=== PATIENT | female | born 1960 | race Caucasian/White ===

== ENCOUNTER 2016-11-03 13:26 | Emergency (ER) | payer MEDICARE, BC ==
[~2016-11-03] VITALS: Ht 162.6 cm; Wt 61.5 kg
[~2016-11-03 13:26] MED LIST: BACL20TA PO; BUPR1PAT TD; OXYC-302 PO
[2016-11-03] MEDS ORDERED: HYDROmorphone 1 MG/ML, 1ML ONE (14:17)
[2016-11-03] MEDS ORDERED: ONDANSETRON 2MG/ML, 2ML ONE (14:17)
[2016-11-03] MEDS ORDERED: SODIUM CHLORIDE 0.9% 1,000ML IVBOLUS ONE (14:30)
[2016-11-03] MEDS ORDERED: ONDANSETRON 2MG/ML, 2ML IVPush ONE (14:30)
[2016-11-03] MEDS ORDERED: SODIUM CHLORIDE FLUSH 10ML SYR IVF ONE (14:30)
[2016-11-03] MEDS ORDERED: HYDROmorphone 1 MG/ML, 1ML IVPush PRN (14:30)
[2016-11-03 14:39] LABS: ASPARTATE AMINO TRANSFERASE 25 U/L (15-37); BLOOD UREA NITROGEN 19 mg/dL (7-18)
[2016-11-03] MEDS ORDERED: HYDROmorphone 2 MG/ML, 1ML ONE (16:08)
[2016-11-03] MEDS ORDERED: PROMETHAZINE 25 MG/ML, 1ML ONE (16:10)
[2016-11-03] MEDS ORDERED: PROMETHAZINE 25 MG/ML, 1ML IM ONE (16:30)
[2016-11-03] MEDS ORDERED: HYDROmorphone 2 MG/ML, 1ML IM ONE (16:30)
[2016-11-03 19:04] VITALS: BP 100/64
== END 2016-11-03 19:36 | disposition home or self-care (01) ==
LOC: ED 19:30
DX: R19.7 Diarrhea, unspecified (principal); R11.2 Nausea with vomiting, unspecified
CPT/HCPCS: 36415; 74176; 80053; 81001; 83690; 85025; 85610; 85730; 87077; 87086; 87186; 96372; 99285; J1170; J2550

== ENCOUNTER 2017-11-29 12:11 | Emergency (ER) | payer MEDICARE, BC ==
[~2017-11-29] VITALS: Ht 162.6 cm; Wt 59.0 kg
[~2017-11-29 12:11] MED LIST changes: -BUPR1PAT TD; +BUPR1PAT7 TD
[2017-11-29] MEDS ORDERED: SODIUM CHLORIDE FLUSH 10ML SYR IVF ONE (13:30)
[2017-11-29] MEDS ORDERED: SODIUM CHLORIDE 0.9% 1,000ML IVBOLUS ONE (13:30)
[2017-11-29 13:42] LABS: BASOPHILS # (AUTO) 0.02 x10^3/uL (0-0.1); BASOPHILS % (AUTO) 0 % (0-1); EOSINOPHILS # (AUTO) 0.11 x10^3/uL (0-0.4); EOSINOPHILS % (AUTO) 2 % (1-7); LYMPHOCYTES # (AUTO) 2.08 x10^3/uL (1-3.4); LYMPHOCYTES % (AUTO) 32 % (22-44); MD NO; MEAN CORPUSCULAR HEMOGLOBIN 31.4 pg (27.0-34.8); MEAN CORPUSCULAR HGB CONC 34.5 g/dL (32.4-35.8); MEAN CORPUSCULAR VOLUME 91.1 fL (80-100); MEAN PLATELET VOLUME 7.7 fL (7.4-10.4); MONOCYTES # (AUTO) 0.38 x10^3/uL (0.2-0.8); MONOCYTES % (AUTO) 6 % (2-9); NEUTROPHILS # (AUTO) 3.99 x10^3/uL (1.8-6.8); NEUTROPHILS % (AUTO) 61 % (42-75); PLATELET COUNT 232 x10^3/uL (130-400); RED BLOOD COUNT 4.02 x10^6/uL (3.82-5.3); RED CELL DISTRIBUTION WIDTH 13.2 % (9.6-15.2)
[2017-11-29 13:52] LABS: ALBUMIN 3.5 g/dL (3.4-5.0); ANION GAP 7 mmol/L (5-15); CALCIUM 8.8 mg/dL (8.5-10.1); CHLORIDE 106 mmol/L (98-107)
[2017-11-29 13:55] LABS: ALANINE AMINOTRANSFERASE 18 U/L (12-78); ALKALINE PHOSPHATASE 87 U/L (45-117); BILIRUBIN,TOTAL 0.4 mg/dL (0.2-1.0); CREATININE 0.39 mg/dL (0.55-1.02); TOTAL PROTEIN 6.8 g/dL (6.4-8.2)
[2017-11-29] MEDS ORDERED: HYDR-879 PO (14:20)
[2017-11-29] MEDS ORDERED: CYCL5TAB PO (14:21)
[2017-11-29] MEDS ORDERED: DOCU-145 PO (14:22)
[2017-11-29 14:33] VITALS: BP 99/65
== END 2017-11-29 14:35 | disposition home or self-care (01) ==
LOC: ED 14:29
DX: K59.00 Constipation, unspecified (principal)
CPT/HCPCS: 36415; 74176; 80053; 83690; 85025; 99285

== ENCOUNTER 2018-01-19 23:15 | Emergency (ER) | payer MEDICARE, BC ==
[~2018-01-19] VITALS: Ht 162.6 cm; Wt 51.0 kg
[~2018-01-19 23:15] MED LIST changes: +CYCL5TAB PO; +DOCU-145 PO; +HYDR-879 PO
[2018-01-19 23:17] VITALS: BP 94/47
[2018-01-20] MEDS ORDERED: HYDROcodone/APAP 5/325 TABLET ONE (00:44)
[2018-01-20] MEDS ORDERED: HYDROcodone/APAP 5/325 TABLET PO ONE (01:00)
[2018-01-20 01:15] LABS: BASOPHILS # (AUTO) 0.03 x10^3/uL (0-0.1); BASOPHILS % (AUTO) 0 % (0-1); EOSINOPHILS # (AUTO) 0.19 x10^3/uL (0-0.4); EOSINOPHILS % (AUTO) 2 % (1-7); LYMPHOCYTES % (AUTO) 25 % (22-44); MD NO; MEAN CORPUSCULAR HEMOGLOBIN 31.5 pg (27.0-34.8); MEAN CORPUSCULAR HGB CONC 34.4 g/dL (32.4-35.8); MEAN CORPUSCULAR VOLUME 91.6 fL (80-100); MEAN PLATELET VOLUME 7.6 fL (7.4-10.4); MONOCYTES % (AUTO) 7 % (2-9); NEUTROPHILS # (AUTO) 5.35 x10^3/uL (1.8-6.8); NEUTROPHILS % (AUTO) 65 % (42-75); PLATELET COUNT 225 x10^3/uL (130-400); RED BLOOD COUNT 3.94 x10^6/uL (3.82-5.3); RED CELL DISTRIBUTION WIDTH 13.6 % (9.6-15.2)
[2018-01-20 01:22] LABS: ALANINE AMINOTRANSFERASE 15 U/L (12-78); ALBUMIN 3.6 g/dL (3.4-5.0); ANION GAP 5 mmol/L (5-15); CALCIUM 8.3 mg/dL (8.5-10.1); CHLORIDE 112 mmol/L (98-107)
[2018-01-20 01:33] LABS: ALKALINE PHOSPHATASE 113 U/L (45-117); BILIRUBIN,TOTAL 0.2 mg/dL (0.2-1.0); CREATININE 0.56 mg/dL (0.55-1.02); THYROID STIMULATING HORMONE 0.766 mIU/L (0.358-3.740); TOTAL PROTEIN 6.8 g/dL (6.4-8.2)
[2018-01-20] MEDS ORDERED: ZIPRASIDONE 20 MG INJ IM ONE (02:00)
== END 2018-01-20 02:58 | disposition home or self-care (01) ==
LOC: ED 23:59
DX: F11.23 Opioid dependence with withdrawal (principal); Z87.891 Personal history of nicotine dependence
CPT/HCPCS: 36415; 80053; 84443; 85025; 96372; 99284; J3486

== ENCOUNTER 2019-10-27 12:20 | Emergency (ER) | payer MEDICARE, BC ==
[~2019-10-27] VITALS: Ht 162.6 cm; Wt 54.5 kg
[~2019-10-27 12:20] MED LIST changes: +ACID1TAB7 PO; +CARV6.2512 PO; +HYDR-3622 PO; -HYDR-879 PO; +SENN-193 PO
[2019-10-27] MEDS ORDERED: DIAZEPAM 5 MG/ML, 2ML ONE (13:42)
[2019-10-27] MEDS ORDERED: DIAZEPAM 5 MG/ML, 2ML IM ONE (14:00)
[2019-10-27] MEDS ORDERED: DIAZEPAM 5 MG/ML, 10ML VIAL IVPush ONE (14:00)
--- NOTE | 2019-10-27 14:21 | NUR ---
PT REFUSED PIV PLACEMENT, [facility] ORDER CHANGED TO IM.
[2019-10-27 14:34] LABS: BASOPHILS # (AUTO) 0.02 x10^3/uL (0-0.1); BASOPHILS % (AUTO) 0 % (0-1); EOSINOPHILS # (AUTO) 0.06 x10^3/uL (0-0.4); EOSINOPHILS % (AUTO) 1 % (1-7); LYMPHOCYTES # (AUTO) 1.05 x10^3/uL (1-3.4); LYMPHOCYTES % (AUTO) 18 % (22-44); MD NO; MEAN CORPUSCULAR HEMOGLOBIN 31.3 pg (27.0-34.8); MEAN CORPUSCULAR HGB CONC 32.9 g/dL (32.4-35.8); MEAN PLATELET VOLUME 7.8 fL (7.4-10.4); MONOCYTES # (AUTO) 0.43 x10^3/uL (0.2-0.8); MONOCYTES % (AUTO) 7 % (2-9); NEUTROPHILS # (AUTO) 4.32 x10^3/uL (1.8-6.8); NEUTROPHILS % (AUTO) 74 % (42-75); PLATELET COUNT 175 x10^3/uL (130-400); RED BLOOD COUNT 3.43 x10^6/uL (3.82-5.3)
[2019-10-27 14:41] LABS: ALBUMIN 3.4 g/dL (3.4-5.0); ANION GAP 4 mmol/L (5-15); CALCIUM 8.2 mg/dL (8.5-10.1); CHLORIDE 110 mmol/L (98-107)
[2019-10-27 14:42] LABS: CREATININE 0.51 mg/dL (0.55-1.02)
--- NOTE | 2019-10-27 14:53 | NUR ---
ALL RESULTS ARE BACK AT THIS TIME. CHART UP FOR RECHECK.
[2019-10-27] MEDS ORDERED: ONDANSETRON ODT 4 MG ONE (15:08)
[2019-10-27] MEDS ORDERED: KETOROLAC 60 MG/2 ML ONE (15:09)
[2019-10-27] MEDS ORDERED: HYDROmorphone 1 MG/ML, 1ML INJ ONE (15:09)
--- NOTE | 2019-10-27 15:15 | NUR ---
MEDS ADMIN PER JUL.
[2019-10-27 15:30] VITALS: BP 127/99
[2019-10-27] MEDS ORDERED: HYDROmorphone 1 MG/ML, 1ML INJ IM ONE (15:30)
[2019-10-27] MEDS ORDERED: ONDANSETRON ODT 4 MG PO ONE (15:30)
[2019-10-27] MEDS ORDERED: KETOROLAC 30 MG/1 ML IM ONE (15:30)
--- NOTE | 2019-10-27 15:46 | NUR ---
PT STATES SHE FEELS A LITTLE BETTER AFTER MEDS.
--- NOTE | 2019-10-27 16:31 | NUR ---
MD AT BEDSIDE TO UPDATE PT ON POC.
== END 2019-10-27 16:45 | disposition home or self-care (01) ==
LOC: ED 13:54
DX: M47.896 Other spondylosis, lumbar region (principal); Z87.891 Personal history of nicotine dependence
CPT/HCPCS: 36415; 80048; 82040; 85025; 96372; 99285; J1170; J1885; J3360; Q0162

== ENCOUNTER 2020-01-12 03:37 | Emergency (ER) | payer MEDICARE, BC ==
[~2020-01-12] VITALS: Ht 162.6 cm; Wt 52.0 kg
[2020-01-12 03:41] VITALS: BP 96/58
[2020-01-12] MEDS ORDERED: DIAZEPAM 5 MG TABLET PO ONE (04:00)
[2020-01-12] MEDS ORDERED: KETOROLAC 60 MG/2 ML IM ONE (04:00)
[2020-01-12] MEDS ORDERED: KETOROLAC 60 MG/2 ML ONE (04:04)
[2020-01-12] MEDS ORDERED: DIAZEPAM 5 MG TABLET ONE (04:04)
[2020-01-12 04:14] LABS: BASOPHILS # (AUTO) 0.02 x10^3/uL (0-0.1); BASOPHILS % (AUTO) 0 % (0-1); EOSINOPHILS # (AUTO) 0.17 x10^3/uL (0-0.4); EOSINOPHILS % (AUTO) 3 % (1-7); LYMPHOCYTES # (AUTO) 1.73 x10^3/uL (1-3.4); LYMPHOCYTES % (AUTO) 27 % (22-44); MD NO; MEAN CORPUSCULAR HEMOGLOBIN 30.9 pg (27.0-34.8); MEAN CORPUSCULAR HGB CONC 33.3 g/dL (32.4-35.8); MEAN PLATELET VOLUME 7.5 fL (7.4-10.4); MONOCYTES # (AUTO) 0.47 x10^3/uL (0.2-0.8); MONOCYTES % (AUTO) 7 % (2-9); NEUTROPHILS # (AUTO) 3.93 x10^3/uL (1.8-6.8); NEUTROPHILS % (AUTO) 62 % (42-75); PLATELET COUNT 197 x10^3/uL (130-400); RED BLOOD COUNT 3.46 x10^6/uL (3.82-5.3); RED CELL DISTRIBUTION WIDTH 12.9 % (9.6-15.2)
[2020-01-12 04:27] LABS: ALANINE AMINOTRANSFERASE 20 U/L (12-78); ALBUMIN 3.3 g/dL (3.4-5.0); ANION GAP 5 mmol/L (5-15); CALCIUM 8.3 mg/dL (8.5-10.1); CHLORIDE 109 mmol/L (98-107); CREATININE 0.48 mg/dL (0.55-1.02)
[2020-01-12 04:29] LABS: ALKALINE PHOSPHATASE 76 U/L (45-117); BILIRUBIN,TOTAL 0.3 mg/dL (0.2-1.0); TOTAL PROTEIN 6.3 g/dL (6.4-8.2)
--- NOTE | 2020-01-12 06:10 | NUR ---
Provider at bedside
[2020-01-12] MEDS ORDERED: HYDROmorphone 1 MG/ML, 1ML INJ ONE ×2 (06:24→06:27)
[2020-01-12] MEDS ORDERED: HYDROmorphone 1 MG/ML, 1ML INJ IM ONE (06:30)
[2020-01-12 07:13] LABS: MICROSCOPIC NOT IND
== END 2020-01-12 08:08 | disposition home or self-care (01) ==
LOC: ED 04:41
DX: M54.5 Low back pain (principal); Z87.891 Personal history of nicotine dependence
CPT/HCPCS: 36415; 80053; 81003; 83690; 85025; 96372; 99284; J1170; J1885

== ENCOUNTER 2020-01-24 15:39 | Emergency (ER) | payer MEDICARE, BC ==
[~2020-01-24] VITALS: Ht 162.6 cm; Wt 55.0 kg
[2020-01-24] MEDS ORDERED: KETOROLAC 30 MG/1 ML ONE (16:24)
[2020-01-24] MEDS ORDERED: DIAZEPAM 5 MG/ML, 2ML ONE (16:24)
[2020-01-24] MEDS ORDERED: DIAZEPAM 5 MG/ML, 2ML IVPush ONE (16:30)
[2020-01-24] MEDS ORDERED: SODIUM CHLORIDE FLUSH 10ML SYR IVF ONE (16:30)
[2020-01-24] MEDS ORDERED: KETOROLAC 30 MG/1 ML IVPush ONE (16:30)
--- NOTE | 2020-01-24 16:38 | NUR ---
NECK AND BACK PAIN. PT NOTED TO HAVE MUSCLE SPASM LIKE MOVEMENTS. MEDICATED FOR SAME
[2020-01-24 17:21] VITALS: BP 160/87
--- NOTE | 2020-01-24 17:39 | NUR ---
AFTER MEDICATED, PT'S STATES PT SLEEPS AND NO MUSCLE JERKING WHILE SLEEPING. THEN PT EXPERIENCES A JERK THAT WAKES HER UP. PT ADDITIONALLY C/O NAUSEA. TO BE MEDICATED FOR SAME. TO CT
[2020-01-24] MEDS ORDERED: ONDANSETRON ODT 4 MG ONE (17:47)
[2020-01-24] MEDS ORDERED: ONDANSETRON ODT 4 MG PO ONE (18:00)
--- NOTE | 2020-01-24 18:20 | NUR ---
PT TEARY AND STATES SHE CONTINUES TO HAVE NECK PAIN. AWAITING RE-EVAL
[2020-01-24] MEDS ORDERED: OXYcodone/APAP 10/325MG TABLET PO ONE (18:30)
--- NOTE | 2020-01-24 18:30 | NUR ---
PA RE-EVAL WITH PAIN MEDICATION ORDERED.
--- NOTE | 2020-01-24 19:00 | NUR ---
REPORT TO DIANE ORTEGA.
--- NOTE | 2020-01-24 19:01 | NUR ---
Report received from JORDAN Wong. This RN assuming care. Patient medicated per jul. Discharge instructions given. All questions and concerns addressed. Assisted into personal electric wheelchair. Belongings with patient.
[2020-01-24] MEDS ORDERED: OXYcodone/APAP 10/325MG TABLET ONE (19:06)
== END 2020-01-24 19:29 | disposition home or self-care (01) ==
LOC: ED 16:43
DX: S16.1XXA Strain of muscle, fascia and tendon at neck level, initial encounter (principal); M47.814 Spondylosis without myelopathy or radiculopathy, thoracic region; M47.812 Spondylosis without myelopathy or radiculopathy, cervical region; X58.XXXA Exposure to other specified factors, initial encounter; Y93.89 Activity, other specified; Y92.009 Unspecified place in unspecified non-institutional (private) residence as the place of occurrence of the external cause; Y99.8 Other external cause status
CPT/HCPCS: 72125; 96374; 96375; 99284; J1885; J3360; Q0162

== ENCOUNTER 2020-02-25 10:40 | Observation (INO) | payer MEDICARE, BC ==
[~2020-02-25] VITALS: Ht 162.6 cm; Wt 56.0 kg
--- NOTE | 2020-02-25 11:08 | NUR ---
PT C/O WORSENING LOW BACK PAIN X3 DAYS, PT IS PARAPLEGIC AND REPORTS THIS PAIN IS NOT BASELINE. PLACED ON VITALS MONITORS, PT TRANSFERRED TO [facility], FALL PRECAUTIONS IN PLACE, CALL LIGHT WITHIN REACH.
[2020-02-25] MEDS ORDERED: ONDANSETRON 2MG/ML, 2ML ONE (11:19)
[2020-02-25] MEDS ORDERED: MORPHINE SULFATE 4 MG/ML, 1ML ONE ×2 (11:20→13:23)
--- NOTE | 2020-02-25 11:21 | NUR ---
PT TRANSPORTED TO CT.
[2020-02-25] MEDS ORDERED: SODIUM CHLORIDE 0.9%, 500ML IVBOLUS ONE (11:30)
[2020-02-25] MEDS ORDERED: ONDANSETRON 2MG/ML, 2ML IVPush ONE (11:30)
[2020-02-25] MEDS: MORPHINE SULFATE 4 MG/ML, 1ML IVPush PRN ×2 (12:00→13:24)
[2020-02-25 12:08] LABS: BASOPHILS % (AUTO) 1 % (0-1); EOSINOPHILS % (AUTO) 1 % (1-7); LYMPHOCYTES % (AUTO) 22 % (22-44); MEAN CORPUSCULAR HEMOGLOBIN 30.5 pg (27.0-34.8); MEAN CORPUSCULAR HGB CONC 32.8 g/dL (32.4-35.8); MEAN PLATELET VOLUME 8.3 fL (7.4-10.4); MONOCYTES % (AUTO) 6 % (2-9); NEUTROPHILS % (AUTO) 70 % (42-75); PLATELET COUNT 178 x10^3/uL (130-400); RED BLOOD COUNT 3.74 x10^6/uL (3.82-5.3); RED CELL DISTRIBUTION WIDTH 13.6 % (9.6-15.2)
[2020-02-25 12:09] LABS: MD NO
[2020-02-25 12:17] LABS: ALANINE AMINOTRANSFERASE 26 U/L (12-78); ALBUMIN 3.5 g/dL (3.4-5.0); ANION GAP 5 mmol/L (5-15); CALCIUM 8.6 mg/dL (8.5-10.1); CHLORIDE 112 mmol/L (98-107); CREATININE 0.54 mg/dL (0.55-1.02)
[2020-02-25 12:19] LABS: ALKALINE PHOSPHATASE 80 U/L (45-117); BILIRUBIN,TOTAL 0.6 mg/dL (0.2-1.0); TOTAL PROTEIN 6.6 g/dL (6.4-8.2)
--- NOTE | 2020-02-25 12:42 | NUR ---
URINE SAMPLE COLLECTED BY STRAIGHT CATH WITHOUT DIFFICULTY.
[2020-02-25] MEDS ORDERED: MELO15TA24 PO (12:46)
[2020-02-25 12:52] LABS: MICROSCOPIC AUTO
[2020-02-25] MEDS ORDERED: CEFTRIAXONE PMX 1GM/50ML 50 ML ONE (13:27)
[2020-02-25] MEDS ORDERED: CEFTRIAXONE PMX 1GM/50ML 50 ML IV ONE (13:30)
[2020-02-25] MEDS ORDERED: PANTOPRAZOLE 40 MG IV IVPush ONE (13:30)
[2020-02-25] MEDS ORDERED: PANTOPRAZOLE 40 MG IV ONE (13:48)
[2020-02-25] MEDS ORDERED: DIAZEPAM 5 MG/ML, 2ML ONE (14:28)
[2020-02-25] MEDS ORDERED: DIAZEPAM 5 MG/ML, 10ML VIAL IV ONE (14:30)
[2020-02-25] MEDS ORDERED: DIAZEPAM 5 MG TABLET PO ONE (14:30)
[2020-02-25] MEDS ORDERED: methylPREDNISolone SOD SUCC 125 MG/2 ML ONE (14:52)
[2020-02-25] MEDS ORDERED: methylPREDNISolone SOD SUCC 125 MG/2 ML IVPush ONE (15:00)
[2020-02-25] MEDS ORDERED: BACLOFEN 10 MG TABLET PO PRN (15:30)
[2020-02-25] MEDS ORDERED: ONDANSETRON 2MG/ML, 2ML IVPush PRN (15:30)
[2020-02-25] MEDS ORDERED: HYDROcodone/APAP 5/325 TABLET PO PRN (15:30)
[2020-02-25] MEDS ORDERED: ONDANSETRON ODT 4 MG PO PRN (15:30)
[2020-02-25] MEDS ORDERED: CYCLOBENZAPRINE 10 MG TABLET PO PRN (15:30)
[2020-02-25 16:11] LABS: ANION GAP 5 mmol/L (5-15); CALCIUM 8.5 mg/dL (8.5-10.1); CHLORIDE 114 mmol/L (98-107)
[2020-02-25] MEDS ORDERED: PANTOPRAZOLE 40 MG IV IVPush SCH (16:30)
--- NOTE | 2020-02-25 18:29 | NUR ---
Pt moved to hospital bed, Ivy RAYMUNDO gave verbal order for 1mg diludid.
[2020-02-25] MEDS ORDERED: HYDROmorphone 1 MG/ML, 1ML INJ IV ONE ×2 (18:30→23:30)
[2020-02-25] MEDS ORDERED: HYDROmorphone 1 MG/ML, 1ML INJ ONE ×2 (18:32→23:12)
--- NOTE | 2020-02-25 19:05 | NUR ---
REPORT GIVEN TO DIANE ORTEGA.
--- NOTE | 2020-02-25 19:08 | NUR ---
Report received from JORDAN Lyman. This RN to assume care.
[2020-02-25] MEDS ORDERED: DOCUSATE 100 MG CAPSULE ONE (19:58)
--- NOTE | 2020-02-25 20:21 | NUR ---
Assisted patient into a gown. D/C O2; no indication at this time and no order. Patient states she gets straight cath at 2100 and between [id number].
[2020-02-25] MEDS: DOCUSATE 100 MG CAPSULE PO SCH (21:05)
[2020-02-25] MEDS ORDERED: CYCLOBENZAPRINE 10 MG TABLET ONE (23:25)
--- NOTE | 2020-02-26 00:11 | NUR ---
Patient requesting Baclofen and Flexeril. Admin meds per jul.
--- NOTE | 2020-02-26 00:31 | NUR ---
Report given to JORDAN Hayes. Patient to be transferred to room [id number].
[2020-02-26 02:01] VITALS: BP 125/82
[2020-02-26] MEDS: morphine SULFATE 10 MG/ML, 1ML IVPush PRN ×3 (02:30→10:08)
[2020-02-26 05:42] LABS: BASOPHILS % (AUTO) 1 % (0-1); EOSINOPHILS % (AUTO) 0 % (1-7); LYMPHOCYTES % (AUTO) 23 % (22-44); MEAN CORPUSCULAR HEMOGLOBIN 30.6 pg (27.0-34.8); MEAN CORPUSCULAR HGB CONC 33.3 g/dL (32.4-35.8); MEAN PLATELET VOLUME 8.5 fL (7.4-10.4); MONOCYTES % (AUTO) 7 % (2-9); NEUTROPHILS % (AUTO) 69 % (42-75); PLATELET COUNT 208 x10^3/uL (130-400); RED BLOOD COUNT 3.67 x10^6/uL (3.82-5.3); RED CELL DISTRIBUTION WIDTH 13.7 % (9.6-15.2)
[2020-02-26 05:49] LABS: MD NO
[2020-02-26] MEDS ORDERED: PANTOPRAZOLE 40 MG IV IVPush SCH (07:30)
[2020-02-26 07:40] VITALS: BP 124/77
[2020-02-26] MEDS ORDERED: CEFTRIAXONE PMX 1GM/50ML 50 ML IV SCH (09:00)
[2020-02-26] MEDS: DOCUSATE 100 MG CAPSULE PO SCH (09:19)
[2020-02-26] MEDS ORDERED: BACLOFEN 10 MG TABLET PO PRN (10:00)
[2020-02-26] MEDS ORDERED: LIDODERM 5% PATCH TD SCH (10:00)
[2020-02-26] MEDS ORDERED: OXYcodone IR 5MG TABLET PO PRN (10:00)
[2020-02-26 14:15] VITALS: BP 127/74
[2020-02-26] MEDS ORDERED: PANT40TA6 PO (14:57)
[2020-02-26] MEDS ORDERED: LIDO700A20 TD (14:57)
[2020-02-26] MEDS ORDERED: OXYC5TAB3 PO (14:57)
[2020-02-26] MEDS ORDERED: SULF1TAB24 PO ×3 (17:32→17:39)
[2020-02-26] MEDS ORDERED: LIDODERM REMOVE PATCH NOTE XX SCH (22:00)
== END 2020-02-26 18:59 | disposition home or self-care (01) ==
LOC: ED 10:57 → INTOOBSV 15:10 → EDIP 15:10 → 4NE 02-26 00:49
PROVIDERS: ADMIT Family Medicine; ATTEND Family Medicine
DX: N39.0 Urinary tract infection, site not specified (principal); K29.80 Duodenitis without bleeding; G89.29 Other chronic pain; M54.9 Dorsalgia, unspecified; I95.9 Hypotension, unspecified; G82.20 Paraplegia, unspecified; K59.09 Other constipation; F11.20 Opioid dependence, uncomplicated; Z87.891 Personal history of nicotine dependence; Z88.0 Allergy status to penicillin; Z79.899 Other long term (current) drug therapy
CPT/HCPCS: 36415; 74176; 80048; 80053; 81001; 83690; 83735; 85025; 87077; 87086; 87186; 87338; 96361; 96365; 96366; 96375; 96376; 99284; C9113; G0378; J0696; J1170; J2270; J2405; J2930; J7040